=== PATIENT | male | born 1990 | race Two or more races ===

== ENCOUNTER 2023-06-01 20:14 | Emergency (ER) | payer OTHER ==
[~2023-06-01] VITALS: Ht 172.7 cm; Wt 107.0 kg
[2023-06-01 21:35] LABS: COVID AG,FIA SOURCE NASAL SWAB
[2023-06-01 22:05] LABS: SARS-COV2 (COVID) ANTIGEN,FIA Negative (Negative)
[2023-06-02] LABS: B-TYPE NATRIURETIC PEPTIDE 5 pg/mL (0-100)
[2023-06-02 00:01] LABS: BASOPHILS % (AUTO) 0.4 % (0.0-2.0); EOSINOPHILS % (AUTO) 0.4 % (1.0-6.0); HEMATOCRIT 46.7 % (41-53); HEMOGLOBIN 15.4 g/dL (13.5-17.5); LYMPHOCYTES # (AUTO) 1.9 K/uL (1.0-4.8); LYMPHOCYTES % (AUTO) 17.7 % (22.0-44.0); MEAN CORPUSCULAR HEMOGLOBIN 26.4 pg (26.0-34.0); MEAN CORPUSCULAR VOLUME 80 fL (80-100); MONOCYTES # (AUTO) 0.9 K/uL (0.1-1.0); MONOCYTES % (AUTO) 8.3 % (2.0-9.0); NEUTROPHILS # (AUTO) 7.8 K/uL (1.8-7.7); NEUTROPHILS % (AUTO) 73.2 % (40.0-70.0); PLATELET COUNT (AUTO) 253 K/uL (150-450); RED BLOOD CELL COUNT(AUTO) 5.82 MIL/uL (4.50-5.90); RED CELL DISTRIBUTION WIDTH 13.5 % (11.5-14.5); WHITE BLOOD COUNT (AUTO) 10.6 K/uL (4.5-11.0)
[2023-06-02 00:03] LABS: ANION GAP 9 mmol/L (8-16); CALCIUM, TOTAL 9.9 mg/dL (8.8-10.5); CARBON DIOXIDE 28 mmol/L (22-29); CHLORIDE 101 mmol/L (98-107); GLOMERULAR FILTR. RATE CALC > 60 mL/min (>60); GLUCOSE,RANDOM 108 mg/dL (70-110); POTASSIUM 3.8 mmol/L (3.5-5.1); SODIUM SERUM 138 mmol/L (136-145); UREA NITROGEN, BLOOD 16 mg/dL (7-18)
[2023-06-02 00:11] LABS: LACTIC ACID 1.2 mmol/L (0.4-2.0); TROPONIN I-HIGH SENSITIVITY 5 ng/L (<76)
[2023-06-02 00:30] LABS: ALANINE AMINOTRANSFERASE 52 U/L (12-78); ALBUMIN 3.9 g/dL (3.4-5.0); ALKALINE PHOSPHATASE 90 U/L (46-116); ASPARTATE AMINOTRANSFERASE 20 U/L (15-37); BILIRUBIN,TOTAL 0.7 mg/dL (0.1-1.0); CREATINE KINASE, TOTAL ONLY 107 U/L (39-308); TOTAL PROTEIN, SERUM 8.7 g/dL (6.4-8.2)
[2023-06-02] MEDS: KETOROLAC TROMETHAMINE 30 MG/ML VIAL IVP ONE (00:34)
[2023-06-02] MEDS: KETOROLAC TROMETHAMINE 60 MG/2 ML VIAL IM ONE (02:25)
[2023-06-02] MEDS ORDERED: KETOROLAC TROMETHAMINE 30 MG/ML VIAL IM ONE (02:30)
[2023-06-02] MEDS ORDERED: CEPH-558 PO (05:30)
[2023-06-02] MEDS ORDERED: IBUP-1492 PO (05:30)
[2023-06-02] MEDS ORDERED: AZIT250T9 PO (05:30)
[2023-06-02 06:04] VITALS: BP 117/73; PULSE 76; RESP 18; TEMP 97.3
== END 2023-06-02 06:43 | disposition home or self-care (01) ==
LOC: EMS 20:17
DX: J18.9 Pneumonia, unspecified organism (principal); R07.89 Other chest pain; Z20.822 Contact with and (suspected) exposure to COVID-19
CPT/HCPCS: 99285; 71045; 87426; 80053; 82550; 83605; 83880; 84484; 85025; 87040; 36415; 93005; 84145; 71250; 96372; J1885